=== PATIENT | female | born 1975 | race Caucasian/White ===

== ENCOUNTER → 2024-09-08 | Outpatient (CLI) | payer OTHER ==
[2024-09-16 06:45] LABS: HPV HIGH RISK BY TMA Not Detected; HPV SOURCE Cervical
== END ==
LOC: LAB 12:48 → LAB SHORT 12:48
PROVIDERS: Family Medicine
DX: Z01.419 Encounter for gynecological examination (general) (routine) without abnormal findings (principal)
CPT/HCPCS: 87624; G0123

== ENCOUNTER → 2025-08-07 | Outpatient (CLI) | payer OTHER ==
[2025-08-07 19:38] LABS: Bacterial Vaginosis PCR Negative (NEGATIVE); Candida Group, PCR NOT DETECTED (NOT DETECT); Candida glabrata-krusei, PCR NOT DETECTED (NOT DETECT)
[2025-08-07 20:08] LABS: Chlamydia Trachomatis Vaginal NOT DETECTED (NOT DETECT); Neisseria Gonorrhoea Vaginal NOT DETECTED (NOT DETECT)
== END ==
LOC: LAB 16:14 → LAB SHORT 16:14
PROVIDERS: Family Medicine
DX: N89.8 Other specified noninflammatory disorders of vagina (principal)
CPT/HCPCS: 81515; 87491; 87591